=== PATIENT | male | born 1990 | race Hispanic/Latino ===

== ENCOUNTER 2017-06-10 12:11 | Emergency (ER) | payer MEDICAID, OTHER ==
[2017-06-10 13:03] LABS: RAPID GROUP A STREP NEGATIVE (NEGATIVE)
== END 2017-06-10 13:37 | disposition home or self-care (01) ==
LOC: EDH 12:11
DX: J01.90 Acute sinusitis, unspecified (principal); R50.81 Fever presenting with conditions classified elsewhere
CPT/HCPCS: 87804; 87880

== ENCOUNTER 2021-09-14 22:47 | Emergency (ER) | payer OTHER ==
[~2021-09-14] VITALS: Ht 167.6 cm; Wt 83.9 kg
[2021-09-14 22:53] VITALS: BP 159/93
[2021-09-14] MEDS ORDERED: HYDROCODONE/ACETAMINOPHEN 10/325 MG TAB PO ONE (23:30)
[2021-09-14] MEDS ORDERED: IBUPROFEN 600 MG TABLET PO ONE (23:30)
[2021-09-14] MEDS ORDERED: IBUP-2070 PO (23:42)
[2021-09-14] MEDS ORDERED: ACET-2079 PO (23:42)
== END 2021-09-14 23:55 | disposition home or self-care (01) ==
LOC: EDH 22:47
DX: S92.352A Displaced fracture of fifth metatarsal bone, left foot, initial encounter for closed fracture (principal); Z79.1 Long term (current) use of non-steroidal anti-inflammatories (NSAID); X58.XXXA Exposure to other specified factors, initial encounter; Y93.89 Activity, other specified; Y92.89 Other specified places as the place of occurrence of the external cause; Y99.8 Other external cause status
CPT/HCPCS: 73610; 73630

== ENCOUNTER 2022-02-24 22:10 | Emergency (ER) | payer OTHER ==
[~2022-02-24] VITALS: Ht 175.3 cm; Wt 91.2 kg
[~2022-02-24 22:10] MED LIST: ACET-2079 PO; IBUP-2070 PO
[2022-02-24 22:11] VITALS: BP 130/92
[2022-02-24 22:27] LABS: BASOPHILS % (AUTO) 0.8 % (0.0-5.0); EOSINOPHILS % (AUTO) 7.7 % (0.0-8.0); HEMATOCRIT 41.6 % (42-54); LYMPHOCYTES % (AUTO) 34.5 % (21.0-51.0); MEAN CORPUSCULAR HEMOGLOBIN 29.3 pg (27.0-33.0); MEAN CORPUSCULAR HGB CONC 34.1 g/dL (32.0-36.0); MONOCYTES % (AUTO) 7.2 % (3.0-13.0); NEUTROPHILS % (AUTO) 49.5 % (40.0-77.0); PLATELET COUNT (AUTO) 330 K/uL (130-400); RED BLOOD CELL COUNT(AUTO) 4.84 MIL/uL (4.50-6.20); RED CELL DISTRIBUTION WIDTH 12.1 % (11.0-15.5); WHITE BLOOD COUNT (AUTO) 9.1 K/uL (4.8-10.8)
[2022-02-24 22:37] LABS: CREATININE 0.8 mg/dL (0.5-1.5); POTASSIUM 4.2 mmol/L (3.5-5.1)
[2022-02-24 22:42] LABS: TOTAL PROTEIN, SERUM 7.5 g/dL (6.0-8.3)
[2022-02-24 22:55] LABS: AMPHET/METH SCREEN,URINE NEGATIVE (NEGATIVE); BARBITURATE SCREEN, URINE NEGATIVE (NEGATIVE); BENZODIAZEPINES SCREEN,URINE NEGATIVE (NEGATIVE); CANNABINOID SCREEN,URINE NEGATIVE (NEGATIVE); COCAINE SCREEN,URINE POSITIVE (NEGATIVE); OPIATE SCREEN,URINE NEGATIVE (NEGATIVE); PHENCYCLIDINE SCREEN,URINE NEGATIVE (NEGATIVE)
[2022-02-24] MEDS ORDERED: 0.9%NACL 1000ML 1,000 ML IV ONE (23:30)
[2022-02-24] MEDS ORDERED: ONDANSETRON 4MG INJ IVP ONE (23:30)
== END 2022-02-25 01:20 | disposition home or self-care (01) ==
LOC: EDH 22:10
DX: F41.8 Other specified anxiety disorders (principal); F14.10 Cocaine abuse, uncomplicated; Z79.1 Long term (current) use of non-steroidal anti-inflammatories (NSAID)
CPT/HCPCS: 99285; 71045; 84484; 80053; 80305; 85025; 36415; 93005; 96374; 96361; J7030; J2405

== ENCOUNTER 2022-05-01 16:26 | Emergency (ER) | payer OTHER ==
[~2022-05-01] VITALS: Ht 175.3 cm; Wt 83.9 kg
[2022-05-01 16:37] VITALS: BP 138/102
[2022-05-01] MEDS ORDERED: ONDANSETRON 4MG INJ IVP ONE (18:00)
[2022-05-01] MEDS ORDERED: MORPHINE 4 MG SYG IVP ONE (18:00)
[2022-05-01] MEDS ORDERED: 0.9%NACL 1000ML 1,000 ML IV ONE (18:00)
[2022-05-01 18:07] LABS: BASOPHILS % (AUTO) 0.4 % (0.0-5.0); EOSINOPHILS % (AUTO) 0.8 % (0.0-8.0); HEMATOCRIT 44.3 % (42-54); LYMPHOCYTES % (AUTO) 7.6 % (21.0-51.0); MEAN CORPUSCULAR HEMOGLOBIN 29.4 pg (27.0-33.0); MEAN CORPUSCULAR HGB CONC 34.8 g/dL (32.0-36.0); MEAN CORPUSCULAR VOLUME 84.7 fL (79-99); MONOCYTES % (AUTO) 3.8 % (3.0-13.0); PLATELET COUNT (AUTO) 388 K/uL (130-400); RED BLOOD CELL COUNT(AUTO) 5.23 MIL/uL (4.50-6.20); RED CELL DISTRIBUTION WIDTH 12.6 % (11.0-15.5)
[2022-05-01 18:26] LABS: POTASSIUM 4.3 mmol/L (3.5-5.1)
[2022-05-01 18:30] LABS: ALBUMIN 4.2 g/dL (3.5-5.0); TOTAL PROTEIN, SERUM 7.7 g/dL (6.0-8.3)
[2022-05-01 19:26] LABS: APPEARANCE,URINE CLEAR (CLEAR); BILIRUBIN,URINE NEGATIVE (NEGATIVE); COLOR,URINE YELLOW (YELLOW); GLUCOSE, URINE (UA) NEGATIVE (NEGATIVE); KETONES,URINE NEGATIVE (NEGATIVE); LEUKOCYTE ESTERASE ,URINE NEGATIVE Leu/uL (NEGATIVE); NITRATE,URINE NEGATIVE (NEGATIVE); OCCULT BLOOD,URINE LARGE (NEGATIVE); PH,URINE 5.5 (5.0-8.0); PROTEIN,URINE 20 mg/dL (NEGATIVE); UROBILINOGEN,URINE 0.2 mg/dL (0.2-1.0)
[2022-05-01 19:35] LABS: BACTERIA,URINE RARE /HPF (None Seen); MUCUS,URINE FEW LPF (None Seen); SQUAMOUS EPITHELIAL CELL,UR RARE /HPF (0-2); YEAST,URINE BUDDING FEW /HPF (None Seen)
[2022-05-01] MEDS ORDERED: LEVO-70 PO (20:01)
[2022-05-01] MEDS ORDERED: TAMS-1 PO (20:01)
== END 2022-05-01 21:05 | disposition home or self-care (01) ==
LOC: EDH 16:26
DX: D72.829 Elevated white blood cell count, unspecified (principal); N30.91 Cystitis, unspecified with hematuria; Z79.899 Other long term (current) drug therapy; Z98.890 Other specified postprocedural states
CPT/HCPCS: 99285; 74176; 96374; 71045; 96361; 96375; 82270; 84484; 80053; 83690; 85025; 83605; 87797; 87486; 81001; 36415; J7030; J2405; J2270

== ENCOUNTER 2022-08-17 18:30 | Inpatient (IN) | payer OTHER ==
[~2022-08-17] VITALS: Ht 165.1 cm; Wt 91.6 kg
[~2022-08-17 18:30] MED LIST changes: +LEVO-70 PO; +TAMS-1 PO
[2022-08-17] MEDS ORDERED: ONDANSETRON 4MG TABLET PO ONE (19:00)
[2022-08-17 19:28] LABS: BASOPHILS % (AUTO) 0.4 % (0.0-5.0); HEMATOCRIT 39.5 % (42-54); LYMPHOCYTES % (AUTO) 16.3 % (21.0-51.0); MEAN CORPUSCULAR HEMOGLOBIN 28.7 pg (27.0-33.0); MEAN CORPUSCULAR HGB CONC 34.2 g/dL (32.0-36.0); MONOCYTES % (AUTO) 6.3 % (3.0-13.0); NEUTROPHILS % (AUTO) 72.8 % (40.0-77.0); PLATELET COUNT (AUTO) 303 K/uL (130-400); RED CELL DISTRIBUTION WIDTH 12.7 % (11.0-15.5); WHITE BLOOD COUNT (AUTO) 13.4 K/uL (4.8-10.8)
[2022-08-17] MEDS ORDERED: MORPHINE 4 MG SYG IVP ONE (19:30)
[2022-08-17] MEDS ORDERED: LACTATED RINGERS 1000ML 1,000 ML IV ONE (19:30)
[2022-08-17 19:44] LABS: CREATININE 1.1 mg/dL (0.5-1.5); POTASSIUM 3.4 mmol/L (3.5-5.1)
[2022-08-17] MEDS ORDERED: ONDANSETRON ODT 4MG TAB ONE (19:44)
[2022-08-17 19:49] LABS: TOTAL PROTEIN, SERUM 7.7 g/dL (6.0-8.3)
[2022-08-17] MEDS ORDERED: IOHEXOL-350 75 ML VIAL IV ONE (20:03)
[2022-08-17 20:56] LABS: APPEARANCE,URINE CLEAR (CLEAR); BILIRUBIN,URINE NEGATIVE (NEGATIVE); COLOR,URINE LIGHT-YELLOW (YELLOW); GLUCOSE, URINE (UA) NEGATIVE (NEGATIVE); KETONES,URINE NEGATIVE (NEGATIVE); LEUKOCYTE ESTERASE ,URINE NEGATIVE Leu/uL (NEGATIVE); NITRATE,URINE NEGATIVE (NEGATIVE); OCCULT BLOOD,URINE MODERATE (NEGATIVE); PH,URINE 6.5 (5.0-8.0); PROTEIN,URINE 30 mg/dL (NEGATIVE); UROBILINOGEN,URINE 0.2 mg/dL (0.2-1.0)
[2022-08-17 21:31] LABS: MUCUS,URINE RARE LPF (None Seen)
[2022-08-17] MEDS ORDERED: ZOSYN 3.375GM +NS 50ML IVPB ONE (22:00)
[2022-08-17] MEDS ORDERED: NITROGLYCERIN 0.4 MG SL TAB SL PRN (22:00)
[2022-08-17] MEDS ORDERED: ONDANSETRON 4MG INJ IV PRN (22:00)
[2022-08-17] MEDS ORDERED: ONDANSETRON 4MG INJ IVP ONE (22:00)
[2022-08-17] MEDS ORDERED: ACETAMINOPHEN 325 MG TAB PO PRN (22:00)
[2022-08-17] MEDS ORDERED: KCL 20 MEQ ERTAB PO ONE (22:00)
[2022-08-17 22:34] LABS: INR 0.99 (0.85-1.15); PROTHROMBIN TIME 11.5 SEC (9.6-11.6)
[2022-08-17 22:35] LABS: PARTIAL THROMBOPLASTIN TIME 27.3 SEC (26.3-35.5)
[2022-08-17] MEDS: FAMOTIDINE 20MG VIAL IV SCH (23:01)
[2022-08-17] MEDS: 0.9%NACL 1000ML 1,000 ML IV SCH (23:01)
[2022-08-18] VITALS (28 sets, daily range): BP systolic 98–157; BP diastolic 57–99
[2022-08-18] MEDS: ACETAMINOPHEN 325 MG TAB PO PRN ×2 (01:52→11:40)
[2022-08-18] MEDS: ZOSYN 3.375GM+NS 50ML 50 ML IVPB SCH ×3 (04:28→21:42)
[2022-08-18 05:37] LABS: BASOPHILS % (AUTO) 0.6 % (0.0-5.0); EOSINOPHILS % (AUTO) 9.8 % (0.0-8.0); HEMATOCRIT 35.8 % (42-54); LYMPHOCYTES % (AUTO) 37.5 % (21.0-51.0); MEAN CORPUSCULAR HEMOGLOBIN 28.9 pg (27.0-33.0); MEAN CORPUSCULAR HGB CONC 33.2 g/dL (32.0-36.0); MEAN CORPUSCULAR VOLUME 86.9 fL (79-99); MONOCYTES % (AUTO) 8.4 % (3.0-13.0); NEUTROPHILS % (AUTO) 43.5 % (40.0-77.0); PLATELET COUNT (AUTO) 265 K/uL (130-400); RED BLOOD CELL COUNT(AUTO) 4.12 MIL/uL (4.50-6.20); RED CELL DISTRIBUTION WIDTH 12.7 % (11.0-15.5)
[2022-08-18 06:01] LABS: ALBUMIN 3.2 g/dL (3.5-5.0); MAGNESIUM 1.9 mg/dL (1.80-2.40); POTASSIUM 3.2 mmol/L (3.5-5.1); TOTAL PROTEIN, SERUM 6.2 g/dL (6.0-8.3)
[2022-08-18] MEDS: FAMOTIDINE 20MG VIAL IV SCH ×2 (08:07→21:42)
[2022-08-18] MEDS ORDERED: FAMOTIDINE 20MG TAB PO SCH (09:00)
[2022-08-18] MEDS ORDERED: POTASSIUM CHLORIDE 20MEQ/100ML 100 ML IV PRN (09:30)
[2022-08-18] MEDS: 0.9%NACL 1000ML 1,000 ML IV SCH (10:09)
[2022-08-18] MEDS ORDERED: MORPHINE 2 MG SYG IVP PRN (11:30)
[2022-08-18] MEDS ORDERED: BUPIVACAINE/PF 0.25% 30ML VIAL IJ ONE (16:32)
[2022-08-18] MEDS ORDERED: ROCURONIUM 10MG/1ML SYR 10 MG/ML ML ONE (17:05)
[2022-08-18] MEDS ORDERED: MIDAZOLAM HCL 1 MG/ML 2ML VIAL ONE (17:05)
[2022-08-18] MEDS ORDERED: LIDOCAINE PF 100MG/5ML (2%) SYRINGE 5ML ONE (17:05)
[2022-08-18] MEDS ORDERED: PROPOFOL 10 MG/ML 20ML VIAL IV ONE (17:05)
[2022-08-18] MEDS ORDERED: SUCCINYLCHOLINE 200MG/10ML SYR ONE (17:05)
[2022-08-18] MEDS ORDERED: FENTANYL CITRATE PF 50 MCG/1 ML 2ML VIAL ONE ×2 (17:06→18:29)
[2022-08-18] MEDS ORDERED: ONDANSETRON 4MG INJ ONE ×2 (17:29→18:25)
[2022-08-18] MEDS ORDERED: DEXAMETHASONE SOD PHOSPHATE 10MG/ML 1ML VIAL ONE (17:29)
[2022-08-18] MEDS ORDERED: GLYCOPYRROLATE 1 MG/5 ML SYRINGE ONE (17:58)
[2022-08-18] MEDS ORDERED: NEOSTIGMINE 5MG/5ML SYR IV ONE (17:59)
[2022-08-18] MEDS ORDERED: MORPHINE 2 MG SYG ONE (18:41)
[2022-08-19 00:30] VITALS: BP 140/92
[2022-08-19] MEDS: MORPHINE 4 MG SYG IVP PRN ×2 (01:01→07:48)
[2022-08-19 01:30] VITALS: BP 139/94
[2022-08-19] MEDS: 0.9%NACL 1000ML 1,000 ML IV SCH (04:21)
[2022-08-19 04:22] LABS: BASOPHILS % (AUTO) 0.2 % (0.0-5.0); HEMATOCRIT 37.6 % (42-54); LYMPHOCYTES % (AUTO) 5.9 % (21.0-51.0); MEAN CORPUSCULAR VOLUME 85.1 fL (79-99); MONOCYTES % (AUTO) 2.6 % (3.0-13.0); NEUTROPHILS % (AUTO) 90.8 % (40.0-77.0); PLATELET COUNT (AUTO) 303 K/uL (130-400); RED BLOOD CELL COUNT(AUTO) 4.42 MIL/uL (4.50-6.20); RED CELL DISTRIBUTION WIDTH 12.4 % (11.0-15.5); WHITE BLOOD COUNT (AUTO) 11.9 K/uL (4.8-10.8)
[2022-08-19 04:30] VITALS: BP 144/90
[2022-08-19] MEDS: ZOSYN 3.375GM+NS 50ML 50 ML IVPB SCH ×2 (05:03→12:49)
[2022-08-19 05:04] LABS: MAGNESIUM 1.7 mg/dL (1.80-2.40); PHOSPHORUS 2.3 mg/dL (2.5-4.9); POTASSIUM 4.2 mmol/L (3.5-5.1)
[2022-08-19 07:42] VITALS: BP 127/85
[2022-08-19] MEDS: FAMOTIDINE 20MG VIAL IV SCH (07:48)
[2022-08-19] MEDS ORDERED: ONDA8TAB12 PO (10:53)
[2022-08-19] MEDS ORDERED: AMOX1TAB16 PO (10:53)
[2022-08-19 11:12] VITALS: BP 133/74
[2022-08-19] MEDS: OXYCODONE/ACETAMIN 5/325MG TAB PO PRN ×2 (12:50→17:16)
[2022-08-19 16:00] VITALS: BP 140/78
== END 2022-08-19 17:00 | disposition home or self-care (01) | DRG 342 ==
LOC: EDH 18:30 → EDHIP 18:31 → 3CH 08-18 00:11
PROVIDERS: ADMIT Internal Medicine; ATTEND Internal Medicine
PROC: 0DTJ4ZZ Resection of Appendix, Percutaneous Endoscopic Approach (ICD-10-PCS; principal; 2022-08-18 07:08)
DX: K35.80 Unspecified acute appendicitis (principal); R65.10 Systemic inflammatory response syndrome (SIRS) of non-infectious origin without acute organ dysfunction; Z20.822 Contact with and (suspected) exposure to COVID-19; E87.6 Hypokalemia
CPT/HCPCS: 36415; 71045; 74177; 80048; 80053; 81001; 83690; 83735; 84100; 84145; 85025; 85610; 85730; 87040; 87635; 93005; G0378; J0330; J1100; J2001; J2250; J2270; J2405; J2543; J2704; J2710; J3010; J3480; J3490; Q9967

== ENCOUNTER 2022-08-29 20:36 | Emergency (ER) | payer OTHER ==
[~2022-08-29] VITALS: Ht 175.3 cm; Wt 91.2 kg
[~2022-08-29 20:36] MED LIST changes: +AMOX1TAB16 PO; -IBUP-2070 PO; -LEVO-70 PO; +ONDA8TAB12 PO
[2022-08-29 21:17] LABS: BASOPHILS % (AUTO) 0.9 % (0.0-5.0); EOSINOPHILS % (AUTO) 10.8 % (0.0-8.0); HEMATOCRIT 44.5 % (42-54); LYMPHOCYTES % (AUTO) 26.8 % (21.0-51.0); MEAN CORPUSCULAR HEMOGLOBIN 29.1 pg (27.0-33.0); MEAN CORPUSCULAR HGB CONC 34.2 g/dL (32.0-36.0); MEAN CORPUSCULAR VOLUME 85.2 fL (79-99); MONOCYTES % (AUTO) 7.6 % (3.0-13.0); NEUTROPHILS % (AUTO) 53.7 % (40.0-77.0); PLATELET COUNT (AUTO) 351 K/uL (130-400); RED BLOOD CELL COUNT(AUTO) 5.22 MIL/uL (4.50-6.20); RED CELL DISTRIBUTION WIDTH 12.7 % (11.0-15.5); WHITE BLOOD COUNT (AUTO) 9.5 K/uL (4.8-10.8)
[2022-08-29 21:32] LABS: BILIRUBIN,URINE NEGATIVE (NEGATIVE); COLOR,URINE YELLOW (YELLOW); GLUCOSE, URINE (UA) NEGATIVE (NEGATIVE); KETONES,URINE NEGATIVE (NEGATIVE); LEUKOCYTE ESTERASE ,URINE NEGATIVE Leu/uL (NEGATIVE); NITRATE,URINE NEGATIVE (NEGATIVE); OCCULT BLOOD,URINE MODERATE (NEGATIVE); PH,URINE 5.5 (5.0-8.0); PROTEIN,URINE 50 mg/dL (NEGATIVE); UROBILINOGEN,URINE 0.2 mg/dL (0.2-1.0)
[2022-08-29 21:35] LABS: APPEARANCE,URINE CLOUDY (CLEAR)
[2022-08-29 21:39] LABS: BACTERIA,URINE RARE /HPF (None Seen); MUCUS,URINE MANY LPF (None Seen)
[2022-08-29 21:47] LABS: CREATININE 1.2 mg/dL (0.5-1.5); POTASSIUM 3.9 mmol/L (3.5-5.1)
[2022-08-29 21:52] LABS: ALBUMIN 4.3 g/dL (3.5-5.0); TOTAL PROTEIN, SERUM 8.4 g/dL (6.0-8.3)
[2022-08-30] MEDS ORDERED: MORPHINE 4 MG SYG ONE (00:04)
[2022-08-30] MEDS ORDERED: ONDANSETRON 4MG INJ ONE (00:04)
[2022-08-30] MEDS ORDERED: ONDANSETRON 4MG INJ IVP ONE (00:30)
[2022-08-30] MEDS ORDERED: MORPHINE 4 MG SYG IVP ONE (00:30)
[2022-08-30] MEDS ORDERED: IOHEXOL-350 75 ML VIAL IV ONE (00:47)
[2022-08-30] MEDS ORDERED: 0.9%NACL 1000ML 1,000 ML IV ONE (01:00)
[2022-08-30 05:08] VITALS: BP 127/81
[2022-08-30] MEDS ORDERED: SIMETHICONE 80 MG TAB.CHEW PO SCH (05:30)
[2022-08-30] MEDS ORDERED: CEFTRIAXONE 1G VIAL IVPB ONE (05:30)
[2022-08-30] MEDS ORDERED: CEPH500B PO (05:40)
[2022-08-30] MEDS ORDERED: ONDA4TAB10 PO (05:40)
[2022-08-30] MEDS ORDERED: IBUP-2070 PO (05:40)
[2022-08-30] MEDS ORDERED: SIME125C81 PO (05:40)
[2022-08-30] MEDS ORDERED: KETOROLAC 30MG VIAL (30MG/ML) IVP ONE (06:00)
== END 2022-08-30 06:23 | disposition home or self-care (01) ==
LOC: EDH 20:36
DX: N39.0 Urinary tract infection, site not specified (principal); L08.9 Local infection of the skin and subcutaneous tissue, unspecified; K31.89 Other diseases of stomach and duodenum; Z20.822 Contact with and (suspected) exposure to COVID-19; Z79.899 Other long term (current) drug therapy; Z90.49 Acquired absence of other specified parts of digestive tract; Z98.890 Other specified postprocedural states
CPT/HCPCS: 99285; 87635; 80053; 85025; 87040 ×2; 87088; 87804 ×2; 83605; 81001; 36415; 74177; 96374; 96375; 96361; C9803; J7030; J0696; J2405; J2270; J1885; Q9967

== ENCOUNTER 2023-08-11 17:37 | Emergency (ER) | payer OTHER ==
[~2023-08-11] VITALS: Ht 175.3 cm; Wt 93.0 kg
[~2023-08-11 17:37] MED LIST changes: +CEPH500B PO; +DOCU-116 PO; +IBUP-2070 PO; +ONDA-243 PO; +ONDA-245 PO; -ONDA8TAB12 PO; +SIME125C81 PO
[2023-08-11 18:47] LABS: BASOPHILS # (AUTO) 0.09 K/uL (0.00-0.20); EOSINOPHILS # (AUTO) 0.67 K/uL (0.00-0.70); EOSINOPHILS % (AUTO) 7.7 % (0.0-8.0); HEMATOCRIT 42.9 % (42-54); IMMATURE GRANULOCYTE ABSOLUTE 0.02 K/uL (0-1); LYMPHOCYTES # (AUTO) 2.3 K/uL (1.0-4.8); LYMPHOCYTES % (AUTO) 25.8 % (21.0-51.0); MEAN CORPUSCULAR HEMOGLOBIN 29.3 pg (27.0-33.0); MEAN CORPUSCULAR HGB CONC 33.6 g/dL (32.0-36.0); MEAN CORPUSCULAR VOLUME 87.2 fL (79-99); MONOCYTES # (AUTO) 0.6 K/uL (0.1-1.0); MONOCYTES % (AUTO) 6.8 % (3.0-13.0); NEUTROPHILS # (AUTO) 5.1 K/uL (1.8-7.7); NEUTROPHILS % (AUTO) 58.5 % (40.0-77.0); PLATELET COUNT (AUTO) 308 K/uL (130-400); RED BLOOD CELL COUNT(AUTO) 4.92 MIL/uL (4.50-6.20); RED CELL DISTRIBUTION WIDTH 12.4 % (11.0-15.5); WHITE BLOOD COUNT (AUTO) 8.7 K/uL (4.8-10.8)
[2023-08-11 19:07] LABS: ALBUMIN 3.4 g/dL (3.5-5.0); BILIRUBIN,TOTAL 0.2 mg/dL (0.2-1.0); CREATININE 0.8 mg/dL (0.5-1.3); POTASSIUM 4.6 mmol/L (3.5-5.1); TOTAL PROTEIN, SERUM 6.4 g/dL (6.0-8.3)
[2023-08-11] MEDS: ONDANSETRON ODT 4MG TAB SL ONE (19:57)
[2023-08-11] MEDS: ASPIRIN 325MG TAB PO ONE (19:57)
[2023-08-11 20:34] LABS: INR 0.92 (0.85-1.15); PARTIAL THROMBOPLASTIN TIME 23.4 SEC (26.3-35.5); PROTHROMBIN TIME 9.8 SEC (9.6-11.6)
[2023-08-11 20:44] VITALS: BP 139/90; PULSE 72; RESP 20; O2SAT 98
[2023-08-11 20:57] LABS: APPEARANCE,URINE CLEAR (CLEAR); BILIRUBIN,URINE NEGATIVE (NEGATIVE); COLOR,URINE YELLOW (YELLOW); GLUCOSE, URINE (UA) NEGATIVE (NEGATIVE); KETONES,URINE NEGATIVE (NEGATIVE); LEUKOCYTE ESTERASE ,URINE NEGATIVE Leu/uL (NEGATIVE); NITRATE,URINE NEGATIVE (NEGATIVE); OCCULT BLOOD,URINE LARGE (NEGATIVE); PH,URINE 5.5 (5.0-8.0); PROTEIN,URINE 10 mg/dL (NEGATIVE); UROBILINOGEN,URINE 0.2 mg/dL (0.2-1.0)
[2023-08-11 20:59] LABS: ADD UA MICROSCOPIC YES
[2023-08-11 21:05] LABS: AMPHET/METH SCREEN,URINE NEGATIVE (NEGATIVE); BARBITURATE SCREEN, URINE NEGATIVE (NEGATIVE); BENZODIAZEPINES SCREEN,URINE NEGATIVE (NEGATIVE); CANNABINOID SCREEN,URINE NEGATIVE (NEGATIVE); COCAINE SCREEN,URINE POSITIVE (NEGATIVE); OPIATE SCREEN,URINE NEGATIVE (NEGATIVE); PHENCYCLIDINE SCREEN,URINE NEGATIVE (NEGATIVE)
[2023-08-11 21:14] LABS: MUCUS,URINE RARE LPF (None Seen); SQUAMOUS EPITHELIAL CELL,UR RARE /HPF (0-2)
== END 2023-08-11 21:40 | disposition home or self-care (01) ==
LOC: EDH 17:37
DX: R07.89 Other chest pain (principal); R20.2 Paresthesia of skin; M94.0 Chondrocostal junction syndrome [Tietze]; F14.10 Cocaine abuse, uncomplicated; Z90.49 Acquired absence of other specified parts of digestive tract; Z98.890 Other specified postprocedural states
CPT/HCPCS: 36415; 80053; 80305; 81001; 84484; 85025; 85610; 85730; 93005

== ENCOUNTER 2024-12-13 15:05 | Emergency (ER) | payer BC ==
[~2024-12-13] VITALS: Ht 175.3 cm; Wt 94.3 kg
[~2024-12-13 15:05] MED LIST changes: +IBUP-1492 PO; -IBUP-2070 PO; -TAMS-1 PO; +TAMS-55 PO
[2024-12-13] MEDS: 0.9%NACL 1000ML 1,000 ML IV ONE ×2 (15:34)
[2024-12-13 15:36] LABS: IMMATURE GRANULOCYTE ABSOLUTE 0.03 K/uL (0-1); NUCLEATED RED BLOOD CELLS 0.0 % (0.0-0.19); PLATELET COUNT (AUTO) 344 K/uL (130-400); RED BLOOD CELL COUNT(AUTO) 4.96 MIL/uL (4.50-6.20); RED CELL DISTRIBUTION WIDTH 12.4 % (11.0-15.5); WHITE BLOOD COUNT (AUTO) 12.2 K/uL (4.8-10.8)
[2024-12-13 15:37] LABS: SARS-CoV-2, RNA, NAAT NEGATIVE SARS CoV-2 (NEGATIVE)
[2024-12-13 15:40] LABS: RAPID GROUP A STREP positive (NEGATIVE)
[2024-12-13 15:45] LABS: INFLUENZA TYPE A Negative For Type A (NEGATIVE); INFLUENZA TYPE B Negative For Type B (NEGATIVE)
[2024-12-13 15:46] LABS: CREATININE 0.9 mg/dL (0.5-1.3); GLOMERULAR FILTR. RATE CALC 114.0 mL/min (>90); GLUCOSE,RANDOM 121.0 mg/dL (70-105); SODIUM SERUM 140.0 mmol/L (136-145); UREA NITROGEN, BLOOD 14.0 mg/dL (7-18)
[2024-12-13 15:59] LABS: ASPARTATE AMINOTRANSFERASE 16.0 U/L (10-37); TOTAL PROTEIN, SERUM 6.9 g/dL (6.0-8.3)
[2024-12-13 16:15] LABS: APPEARANCE,URINE CLEAR (CLEAR); GLUCOSE, URINE (UA) NEGATIVE (NEGATIVE); LEUKOCYTE ESTERASE ,URINE NEGATIVE Leu/uL (NEGATIVE); NITRATE,URINE NEGATIVE (NEGATIVE); OCCULT BLOOD,URINE LARGE (NEGATIVE)
[2024-12-13 16:31] LABS: ADD UA MICROSCOPIC YES
[2024-12-13 16:34] LABS: CALCIUM OXALATE CRYSTALS,UR RARE /LPF (None Seen)
[2024-12-13] MEDS ORDERED: ONDA-243 PO (17:11)
[2024-12-13] MEDS ORDERED: AMOX1TAB16 PO (17:11)
--- NOTE | 2024-12-13 17:12 | ERN ---
General Chief Complaint: Flu Symptoms Stated Complaint: FLU SYM Time Seen by MD: 15:09 Time Seen by Midlevel: 15:09 Source: patient History of Present Illness Initial Comments 34-year-old male presents to the emergency departmen for evaluation of flu-like symptoms Allergies: Coded Allergies: No Known Drug Allergies (Unverified Allergy, Unknown, 09/14/21) Home Meds Active Scripts Docusate Sodium (Colace) 100 Mg Capsule, 100 MG PO TID for constipation, #30 CAP 0 Refills Prov:NANETTE NARAYANAN 09/04/22 Ondansetron (Ondansetron Odt) 4 Mg Tab.rapdis, 4 MG PO TID PRN for NAUSEA, #30 TAB 0 Refills Prov:MARYANN HSIEH MD 08/30/22 Cephalexin Monohydrate (Keflex) 500 Mg Cap, 500 MG PO QID for 10 Days, #40 CAP 0 Refills Prov:MARYANN HSIEH MD 08/30/22 Ibuprofen (Ibuprofen) 600 Mg Tablet, 600 MG PO Q6H PRN for PAIN, #30 TAB 0 Refills Prov:MARYANN HSIEH MD 08/30/22 Simethicone (Simethicone) 125 Mg Capsule, 125 MG PO TID, #15 CAP 0 Refills Prov:MARYANN HSIEH MD 08/30/22 Ondansetron (Ondansetron Odt) 8 Mg Tab.rapdis, 8 MG PO TIDP PRN for NAUSEA/VOMITING for 5 Days, #15 TAB Prov:BRIAN FERMIN Jr., MD 08/19/22 Amoxicillin/Potassium Clav (Amox Tr-K Clv 875-125 mg Tab) 1 Each Tablet, 1 EACH PO BID for 7 Days, #14 TAB Prov:BRIAN FERMIN Jr., MD 08/19/22 Tamsulosin HCl (Flomax) 0.4 Mg Cap.er.24h, 0.4 MG PO DAILY for 30 Days, #30 CAPSULE. Prov:MARIA TERESA LUTZ 05/01/22 Acetaminophen with Codeine (Acetaminophen-Cod #3 Tablet) 1 Each Tablet, 1 TAB PO Q6H PRN for PAIN LEVEL 7 TO 10, #15 TAB Prov:TAB KHALIL MD 09/14/21 Past Medical History Past Medical History: Renal Disese, Other Medical History Other: HEART MURMUR Past Surgical History: Appendectomy, None Surgical History Other: FOOT Social History Social History: Negative, Lives with family, Other ROS Dictation CONSTITUTIONAL: Negative except for HPI HEAD/FACE: Negative except for HPI EENT: Negative except for HPI RESPIRATORY: Negative except for HPI GASTROINTESTINAL/ABDOMINAL: Negative except for HPI GENITOURINARY: Negative except for HPI MUSCULOSKELETAL: Negative except for HPI INTEGUMENTARY: Negative except for HPI NEUROLOGICAL/PSYCH: Negative except for HPI HEMATOLOGIC/LYMPHATIC: Negative except for HPI All Systems Negative, Except as noted above. 13 point review of systems assessed and all negative except for above. Physical Exam Physical Exam Dictation Vital Signs reviewed General Appearance: Alert, oriented x 3, no acute distress, well developed, nourished. Head and Face: non-traumatic. Eyes: PERRL, pink conjunctivas, eyelid no trauma, anterior chamber with arcus senilis. Ears: Pinnas intact and no signs of trauma or erythema ear canals clear and no discharge TM no erythema Nose: No discharge, no bleeding. Oropharynx: Mouth normal, tongue pink, pharynx clear,no erythema, tonsils no exudates, no abscesses noted, mucous membrane moist Neck: Supple, non-tender, no thyromegaly, no masses, no JVD, no bruits Breast:Deferred Chest:No tenderness, no crepitus, no paradoxical movement, no retractions Lungs:Clear, well-ventilated, symmetric, no rales, no wheezing, no rhonchi, no stridor, good breath sounds bilaterally Heart: Regular rate, regular rhythm, no murmur, no gallops Vascular: no peripheral edema, Abdomen: Soft, positive bowel sounds, nondistended, no guarding, nontender, no rebound, no masses no hepatomegaly, no splenomegaly, no Medina's sign, no hernias. Rectal: Deferred Genital: Deferred Neurological: Normal speech, motor function intact, sensory function intact Musculoskeletal: Neck nontender, full range of motion, back nontender, full range of motion, Extremities: nontender, full range of motion Skin: Color pink, dry, no turgor, no rash, no lacerations, no abrasions, no contusions. Lymphatic: Deferred Results Laboratory and Microbiology Lab and Micro Result Laboratory Tests Test 12/13/24 15:10 12/13/24 15:28 12/13/24 16:06 Influenza Type A Antigen Negative For Type A Influenza Type B Antigen Negative For Type B SARS-CoV-2, RNA, NAAT NEGATIVE SARS CoV-2 Group A Streptococcus Rapid positive (NEGATIVE) *A White Blood Count 12.2 K/uL (4.8-10.8) H Red Blood Count 4.96 MIL/uL (4.50-6.20) Hemoglobin 14.5 g/dL (14.0-18.0) Hematocrit 42.6 % (42-54) Mean Corpuscular Volume 85.9 fL (79-99) Mean Corpuscular Hemoglobin 29.2 pg (27.0-33.0) Mean Corpuscular Hemoglobin Concent 34.0 g/dL (32.0-36.0) Red Cell Distribution Width 12.4 % (11.0-15.5) Platelet Count 344 K/uL (130-400) Mean Platelet Volume 9.5 fL (7.5-10.5) Immature Granulocyte % (Auto) 0.2 % (0-1) Neutrophils (%) (Auto) 65.5 % (40.0-77.0) Lymphocytes (%) (Auto) 22.3 % (21.0-51.0) Monocytes (%) (Auto) 5.4 % (3.0-13.0) Eosinophils (%) (Auto) 6.0 % (0.0-8.0) Basophils (%) (Auto) 0.6 % (0.0-5.0) Neutrophils # (Auto) 8.0 K/uL (1.8-7.7) H Lymphocytes # (Auto) 2.7 K/uL (1.0-4.8) Monocytes # (Auto) 0.7 K/uL (0.1-1.0) Eosinophils # (Auto) 0.73 K/uL (0.00-0.70) H Basophils # (Auto) 0.07 K/uL (0.00-0.20) Absolute Immature Granulocyte (auto 0.03 K/uL (0-1) Nucleated Red Blood Cells 0.0 % (0.0-0.19) Sodium Level 140 mmol/L (136-145) Potassium Level 3.4 mmol/L (3.5-5.1) L Chloride Level 104 mmol/L (101-111) Carbon Dioxide Level 31 mmol/L (21-32) Blood Urea Nitrogen 14 mg/dL (7-18) Creatinine 0.9 mg/dL (0.5-1.3) Glomerular Filtration Rate Calc 114 mL/min (>90) Random Glucose 121 mg/dL (70-105) H Total Calcium 8.4 mg/dL (8.5-10.1) L Total Bilirubin 0.3 mg/dL (0.2-1.0) Direct Bilirubin 0.1 mg/dL (0.0-0.3) Aspartate Amino Transf (AST/SGOT) 16 U/L (10-37) Alanine Aminotransferase (ALT/SGPT) 28 U/L (12-78) Alkaline Phosphatase 98 U/L (50-136) Total Protein 6.9 g/dL (6.0-8.3) Albumin 3.6 g/dL (3.5-5.0) Lipase 45 U/L (16-77) Urine Color YELLOW (YELLOW) Urine Appearance CLEAR (CLEAR) Urine pH 6.0 (5.0-8.0) Urine Specific Butler 1.036 (1.001-1.031) Urine Protein 20 mg/dL (NEGATIVE) H Urine Glucose (UA) NEGATIVE mg/dL (NEGATIVE) Urine Ketones 5 mg/dL (NEGATIVE) H Urine Occult Blood LARGE (NEGATIVE) H Urine Nitrate NEGATIVE (NEGATIVE) Urine Bilirubin NEGATIVE mg/dL (NEGATIVE) Urine Urobilinogen 2.0 mg/dL (0.2-1.0) H Urine Leukocyte Esterase NEGATIVE Radha/uL Urine RBC 26-50 /HPF (0-1) H Urine WBC 0-1 /HPF (0-1) Urine Calcium Oxalate Crystals RARE /LPF (None Seen) Urine Bacteria RARE /HPF (None Seen) Labs Reviewed?: Yes MDM MDM: Differential diagnosis: Viral syndrome, upper respiratory infection, strep There are no social concerns with this patient. Prescription drug management Prescriptions will include: Augmentin Medical management and examination interpretation discussions were had by me with other qualified healthcare professionals as indicated for the patient's care. ED Course Orders Procedure Category Date Status Time Influenza Type A & B, LAB 12/13/24 Complete Rapid 15:09 Covid Rna Naat LAB 12/13/24 Complete 15:09 Rapid (Group A Strep) LAB 12/13/24 Complete 15:09 Basic Metabolic Panel LAB 12/13/24 Complete 15:15 Cbc With Differential LAB 12/13/24 Complete 15:15 Urinalysis Profile LAB 12/13/24 Complete 15:15 0.9%Nacl 1000ml (Ns PHA 12/13/24 Complete 1000ml) 15:30 0.9%Nacl 1000ml (Ns PHA 12/13/24 Complete 1000ml) 15:33 Hepatic Function Panel LAB 12/13/24 Complete 15:35 Lipase LAB 12/13/24 Complete 15:35 Ceftriaxone 1g Vial PHA 12/13/24 In Process (Rocephine 1g Inj) 17:00 Current Medications Medications (Trade) Dose Ordered Sig/Naz Route PRN Reason Start Time Stop Time Status Last Admin Dose Admin Ceftriaxone Sodium (ROCEphine 1G INJ) 1 gm ONCE ONCE IVPB 12/13/24 17:00 12/13/24 17:01 Sodium Chloride 1,000 ml @ 0 mls/hr ONCE ONCE IV 12/13/24 15:30 12/13/24 15:32 DC 12/13/24 15:34 Sodium Chloride 1,000 ml @ As Directed STK-MED ONCE IV 12/13/24 15:33 12/13/24 15:33 DC Vital Signs Date Time Temp Pulse Resp B/P (MAP) Pulse Ox O2 Delivery O2 Flow Rate FiO2 12/13/24 15:17 89 18 139/86 97 Room Air* 0 21 12/13/24 15:08 98.8 89 18 152/90 97 DX & DISP Disposition: Discharge Departure Impression: Primary Impression: Strep pharyngitis Condition: Stable Scripts Ondansetron (Ondansetron Odt) 4 Mg Tab.rapdis 4 MG PO BID for 7 Days, #14 TAB Prov: JULI ORTEGA 12/13/24 Amoxicillin/Potassium Clav (Amox Tr-K Clv 875-125 mg Tab) 875 Mg-125 Mg Tablet 1 EACH PO BID for 7 Days, #14 TAB 0 Refills Prov: JULI ORTEGA 12/13/24 Additional Instructions: You have tested positive for strep. Your COVID and flu swabs were negative. The remainder of your blood work is normal. Your electrolytes are within normal ranges. Your liver function tests are normal. Your urinalysis does not show any evidence of infection. You were given antibiotics in the emergency department. I have given you a prescription for oral antibiotics for outpatient management. You will need to follow up with your primary care doctor for further evaluation. Referrals: SELF,REFERRAL (PCP) Time of Disposition: 17:04 I have reviewed the case, and I agree with, Diagnosis and Plan I performed the substantive portion of the visit. I have reviewed and personally made and approve the management plan that is documented in the note by myself or the JILLIAN. I acknowledge for responsibility for the patient's management plan. JULI ORTEGA PAC Dec 13, 2024 17:11
[2024-12-13 17:14] VITALS: BP 136/70; PULSE 84; RESP 18; TEMP 98.4; O2SAT 97
== END 2024-12-13 17:23 | disposition home or self-care (01) ==
LOC: EDH 15:05
DX: J02.0 Streptococcal pharyngitis (principal); Z90.49 Acquired absence of other specified parts of digestive tract; Z20.822 Contact with and (suspected) exposure to COVID-19
CPT/HCPCS: 99284; 96374; 96361; 87635; 80076; 80048; 83690; 85025; 87880; 87804 ×2; 81001; 36415; J7030; J0696